=== PATIENT | male | born 1985 | race Caucasian/White ===

== ENCOUNTER 2020-08-03 02:05 | Emergency (ER) | payer BC ==
[~2020-08-03] VITALS: Ht 190.5 cm; Wt 100.0 kg
[~2020-08-03 02:05] MED LIST: FIORICET 325 MG1 TA1 PO
[2020-08-03 03:09] LABS: BASO % 0.3 % (0.0-2.0); EOS # 0.2 (0.0-0.7); EOS % 1.7 % (0-4.0); GRAN # 6.8 (1.4-6.5); GRAN % 67.8 % (42.2-75.2); HEMATOCRIT 46.3 % (42.0-52.0); HEMOGLOBIN 16.1 g/dl (13.5-18.0); LYMPH # 2.2 (1.2-3.4); LYMPH % 22.1 % (20.0-51.0); MEAN CELL VOLUME 85 fl (80.0-100.0); MEAN CORPUSCULAR HEMOGLOBIN 30 pg (27.0-31.0); MEAN CORPUSCULAR HGB CONC 35 g/dl (33.0-37.0); MEAN PLATELET VOLUME 10.7 fl (7.4-10.4); MONO # 0.8 (0.1-0.6); MONO % 7.8 % (1.7-9.3); PLATELET COUNT 191 K/mm3 (130-400); RED BLOOD COUNT 5.46 M/mm3 (4.20-5.60); REDCELL DISTRIBUTION WIDTH-CV 13.2 % (11.5-14.5)
[2020-08-03 03:20] LABS: ALANINE AMINOTRANSFERASE 29 U/L (4-49); ALBUMIN 4.6 gm/dL (3.5-5.0); ALKALINE PHOSPHATASE 114 U/L (50-136); ANION GAP 12 mmol/L (7-16); AST,SGOT 28 U/L (15-37); BILIRUBIN,TOTAL 1.6 mg/dL (0.0-1.0); BLOOD UREA NITROGEN 19 mg/dL (9-20); CALCIUM 9.1 mg/dL (8.4-10.2); CARBON DIOXIDE 24 mmol/L (22-30); CHLORIDE 104 mmol/L (98-107); CREATININE, serum 0.95 (0.66-1.25); GLUCOSE 108 mg/dL (74-106); POTASSIUM 4.3 mmol/L (3.4-5.0); SODIUM 140 mmol/L (137-145); TOTAL PROTEIN 8.2 gm/dL (6.4-8.2)
[2020-08-03 03:32] LABS: TROPONIN-I < 0.012 ng/mL (0.000-0.035)
[2020-08-03] MEDS ORDERED: PROTONIX 40MG T40 MG PO (05:29)
[2020-08-03 06:10] VITALS: BP 141/82; PULSE 90; TEMP 98.4
== END 2020-08-03 06:05 | disposition home or self-care (01) ==
LOC: COL.ER 02:05
PROVIDERS: Emergency Medicine
DX: R07.89 Other chest pain (principal)

== ENCOUNTER → 2022-11-27 | Outpatient (CLI) | payer OTHER ==
[~2022-11-27] MED LIST changes: +FLOMAX 0.40.4 MG/CAP PO; +PROTONIX 40MG T40 MG PO
== END ==
LOC: MHCPAIN 10:55
DX: G95.9 Disease of spinal cord, unspecified (principal); Q28.8 Other specified congenital malformations of circulatory system; M62.838 Other muscle spasm
CPT/HCPCS: G0463

== ENCOUNTER 2023-03-13 14:30 | Outpatient (RCR) | payer OTHER | END 2023-03-15 | disposition home or self-care (01) | LOC: MKS.ESL.OT | DX: G95.9 Disease of spinal cord, unspecified (principal) ==

== ENCOUNTER 2023-03-19 15:58 | Outpatient (RCR) | payer OTHER | END 2023-03-19 17:00 | disposition home or self-care (01) | LOC: MKS.ESL.OT 15:58 | DX: G95.9 Disease of spinal cord, unspecified (principal); Z98.890 Other specified postprocedural states ==

== ENCOUNTER → 2023-04-14 | Outpatient (CLI) | payer OTHER | LOC: MHCPAIN 10:15 | DX: G95.9 Disease of spinal cord, unspecified (principal); Q28.8 Other specified congenital malformations of circulatory system; M62.838 Other muscle spasm | CPT/HCPCS: G0463 ==